=== PATIENT | male | born 1955 | race Caucasian/White ===

== ENCOUNTER 2020-04-18 09:52 | Day surgery (SDC) | payer OTHER, SELFPAY ==
[2020-04-11 15:07] VITALS: BMI 27.9
--- NOTE | 2020-04-18 10:06 | P.CONAN_ITS ---
HPI - Anesthesia Eval Consult details Narrative: 64yo patient here for colonoscopy. [facility] Past Medical History Medical History Chronic HFrEF (heart failure with reduced ejection fraction) Essential hypertension Non-ischemic cardiomyopathy On beta robinson at home Peripheral neuropathy PVC (premature ventricular contraction) Type II diabetes mellitus Family History Family history of problems with anesthesia: No Surgical History Surgical History Hx of cardiac catheterization Hx of colonoscopy History of Problems with Anesthesia: No Social History Social History Are you a primary certified social workers in health care to a significant other at home: No Do you presently have visiting nurse or other home services: No Smoking Status: Never smoker Second Hand Smoke Exposure: No Use of substances other than those prescribed or required for medical reasons: No Have you been hit, kicked, punched, or otherwise hurt by someone within the past year? If so, by whom?: No Advance Directives: No Advance Directives Information Provided: No Advance Directives on File: No Recently lost weight without trying: No Meds Allergies Allergy/AdvReac Type Severity Reaction Status Date / Time No Known Allergies Allergy Unverified 04/11/20 15:00 Home Medications Medication Instructions Recorded Confirmed Type furosemide 20 tab PO DAILY 04/11/20 04/11/20 History insulin glargine [Lantus Solostar 30 unit SUBCUT BEDTIME 04/11/20 04/11/20 Hist ory U-100 Insulin] lisinopril 1 tab PO DAILY 04/11/20 04/11/20 History Exam Exam Date and Time: April 18, 2020 1006 Height,Weight and Vital Signs: Height 5 ft 10 in Weight 88.451 kg Pertinent Lab Results Pertinent Lab Results: Echo 07/27/19: Moderate to severe decrease LV Systolic function. EF 30-35%. Global hypokinesiswithbregional inferior/ inferolateral wall abnormalities. Grade1(mild) diastolic dysfunction. LA moderately dilated. Mild dilatation ascending aorta 4cm. Echo11/18/28: Mildly reduced LV systolic function. EF 45-50%. Impaired relaxation. EMG Nerve conduction studies 10/13/19: secondary LE weakness and fall: Mild proximal myopathic changes, distal chronic denervative changes of neuropathy bilaterally in lower extremities. Holter 08/03/19: Basic rhythm NSR. BBB. Frequent PVCs, occ PACs. MRI Lumbar spine: Multilevel DDD, canal stenosis, disc herniation. Airway Mallampati Class: II TM Dist: >3cm Neck ROM: Full Loose/Missing/Broken Teeth: Yes (Extractions) Heart: RRR Lungs: CTAB Assessment and Plan Assessment Anesthesia Assessment: Anesthesia Plan Discussed and Chart Reviewed Final Anesthetic Review NPO: Yes ASA Class: III Final Preanesthetic Review: No Changes in Pt Med Stat, Meds/Allgs Chart Reviewed, Consent Obtained/Reviewed and Anes Risks/Benef Reviewed Patient Risk: Intermediate Procedure Risk: Low Anesthetic Plan Anesthetic Plan: MAC: Disposition: Standard PACU
[2020-04-18 10:21] LABS: Glucose, Whole Blood 141 mg/dL (60-115)
[2020-04-18 10:29] VITALS: BP 178/82; PULSE 63; RESP 18; TEMP 36.1; O2SAT 100
[2020-04-18] MEDS: Lactated Ringers 1,000 ML 100 ML IVCONT (10:30)
--- NOTE | 2020-04-18 11:15 | MHC.SHP ---
Pre-Procedural Eval Section B Chief Complaint: Screening Details of Present Illness: Hx of Tubular adenoma Relevant Family History (Specify if Yes): No Relevant Social History: None Present Medications: see Short Stay Collaborative assessment Medical History: Significant History (Hypertension, Diabetes) History of Previous Operations: Relevant previous surgery/procedure and date(s) (Last colo--2008--TA) Allergies: Allergies Allergy/AdvReac Type Severity Reaction Status Date / Time No Known Allergies Allergy Unverified 04/11/20 15:00 Review of Systems Sugical H&P ROS: Negative: Constitution, Respiratory and Gastrointestinal and Yes, Specify: Cardiovascular (cath neg) and Endocrine (Diabetic for 5 years) Exam Surgical H&P Exam: Normal: HEENT, Normal: Heart, Normal: Lungs, Normal: Extremities and Normal: Abdomen Plan Diagnosis/Plan: Unchanged Patient has been examined and remains a candidate for the planned procedureYes
--- NOTE | 2020-04-18 11:18 | PM.PROC ---
Brief Operative Note Date of procedure: 04/18/20 Pre-op diagnosis: Hx of Tubular adenoma--colon cancer screening Anesthesia: MAC (CRESENCIO Enrique) Surgeon: Eun Sanders Estimated blood loss (mL): 5 Pathology: other (Hepatic flexure, ascending colon) Condition: stable Disposition: PACU
[2020-04-18 11:46] VITALS: BP 118/61; PULSE 56; RESP 12; TEMP 36.1; O2SAT 100
--- NOTE | 2020-04-18 11:47 | PM.PROC ---
Brief Operative Note Date of procedure: 04/18/20 Pre-op diagnosis: COLON CANCER SCREENING--HX TA Post-op diagnosis: other (POLYPS X 2) Procedure: COLO W/ EXC POLYPECTOMY X 2 CBXF Anesthesia: MAC (CRESENCIO WEST) Surgeon: Eun Sanders Estimated blood loss (mL): 5 Pathology: other (HEPATIC FLEXURE, ASCENDING COLON) Condition: stable Disposition: PACU
[2020-04-18 12:02] VITALS: BP 177/95; PULSE 60; RESP 13; TEMP 36.1; O2SAT 100
--- NOTE | 2020-04-18 12:41 | OP_ITS ---
SURGEON: Eun Sanders MD PREOPERATIVE DIAGNOSIS: History of tubular adenoma in 2008. This is his second colonoscopy. POSTOPERATIVE DIAGNOSIS: Colonic Polyps. ESTIMATED BLOOD LOSS: Less than 5 cc. COMPLICATIONS: No complications. ANESTHESIA: Monitored. ASSISTANTS: No personal injury legal assistant. SPECIMENS: Removed, hepatic flexure and ascending colon. INNERSOLE FITTER: Dr. Sanders. PROCEDURES PERFORMED: Colonoscopy with excisional polypectomy x2 with use of the cold biopsy forceps. CONDITION: Postprocedure, stable. FINDINGS: Digital rectal exam, prostate was slightly enlarged, right lobe greater than left. Video colonoscope was introduced without difficulty. It was navigated into the rectosigmoid. Scope was advanced easily through sigmoid, descending, transverse colon. At the hepatic flexure, diminutive polyp was identified and removed excisionally with cold biopsy forceps. There was sticky mucoid residue adherent to the mcintyre of the ascending colon. This area was flushed and suctioned. We were able to facilitate movement into the cecal cap. Appendiceal orifice was seen. Ileocecal valve was well seen. The second polyp seen just above the area where we entered the cecum. This was again removed excisionally with the cold biopsy foreps. Slow rotational views on withdrawal of scope, no additional lesions were seen. Anorectal verge was clear. CURRENT RECOMMENDATIONS: Repeat asymptomatic screening in this patient going to be 5 years. ANESTHESIOLOGISTS: Iva/Nohemi Walton. GRAFT OR IMPLANTS: No grafts or implants. Eun Sanders MD MEN/MODL / [id number] MTD
== END 2020-04-18 13:52 | disposition home or self-care (01) ==
PROVIDERS: PCP Nurse Practitioner Family; Visit Provider Internal Medicine Gastroenterology
PROC: 0DJD8ZZ Inspection of Lower Intestinal Tract, Via Natural or Artificial Opening Endoscopic (ICD-10-PCS; CPT 45378; principal; 2020-04-18 11:10)
DX: Z12.11 Encounter for screening for malignant neoplasm of colon (principal); Z86.010 Personal history of colon polyps; D12.3 Benign neoplasm of transverse colon; K63.5 Polyp of colon; N40.0 Benign prostatic hyperplasia without lower urinary tract symptoms; I11.0 Hypertensive heart disease with heart failure; I50.22 Chronic systolic (congestive) heart failure; I42.8 Other cardiomyopathies; G62.9 Polyneuropathy, unspecified; E11.9 Type 2 diabetes mellitus without complications; Z79.4 Long term (current) use of insulin; Z79.899 Other long term (current) drug therapy
CPT/HCPCS: 45380; 82947; 88305

== ENCOUNTER → 2020-05-08 14:43 | Outpatient (REF) | payer OTHER, SELFPAY ==
--- NOTE | 2020-05-08 15:00 | CA_ITS ---
Transthoracic Echocardiogram Patient (Last, First, Middle): Briana Borrero A Gender: Male Date of : 1955 Age: 65 Procedure Date: 05/08/2020 Procedure Type: Transthoracic Echocardiogram Location: OP Height: 177.8 cm Weight: 90.72 kg BSA: 2.09 m2 Heart Rate: bpm BP: 128 / 80 mmHg Poultry Pinner: Referring MD: Gerry Lobo MD Symptoms: I50.22 CHRONIC SYSTOLIC CHF,I42.8 OTHER CARDIOMYOPATHIES Study Quality: Good ECG Rhythm: Sinus Conclusions: - The left ventricular systolic function is moderately decreased. The visually estimated ejection fraction is between 30-35%. Findings Procedure Information Contrast agent, definity, is being given per protocol without apparent complications. Left Ventricle Normal left ventricular cavity size. There is mildly increased left ventricular wall thickness. The left ventricular systolic function is moderately decreased. The visually estimated ejection fraction is between 30 35%. There is moderate global hypokinesis. Prior Study Comparison Changes noted compared to prior study dated: 11/19/2019. LVEF further diminished. Measurements 2D Linear Measurements IVSd: 1.20 0.6-0.9/0.6-1.0 cm LVIDd: 5.16 3.9-5.3/4.2-5.9 cm LVIDd Index: 2.47 2.4-3.2/2.2-3.1 cm/m2 LVIDs: 4.30 2.0-3.6 cm LVPWd: 1.21 0.7-1.1 cm LV Mass: 308.27 67-162/88-224 g LV Mass Index: 147.50 43-95/49-115 g/m2 2D Systolic Function EF 4C: 30.30 >55% EF 2C: 28.40 >55% EF BiP: 31.50 >55% Updated in Other Vendor System with Status of Final Weston Anguiano MD electronically signed on 05/09/2020 10:43:39 AM with status of Final
== END ==
LOC: HO.CARD 14:43
PROVIDERS: PCP Nurse Practitioner Family; Visit Provider Internal Medicine Cardiovascular Disease
DX: I50.22 Chronic systolic (congestive) heart failure (principal); I42.8 Other cardiomyopathies
CPT/HCPCS: 93308; Q9957

== ENCOUNTER → 2020-05-15 08:06 | Outpatient (BNVA) | payer OTHER, SELFPAY | PROVIDERS: PCP Nurse Practitioner Family; Referring Provider Nurse Practitioner Family; Visit Provider Internal Medicine Gastroenterology | DX: Z13.89 Encounter for screening for other disorder (principal) | CPT/HCPCS: Q3014 ==

== ENCOUNTER → 2020-05-16 14:41 | Outpatient (BNVA) | payer OTHER, SELFPAY | PROVIDERS: PCP Nurse Practitioner Family; Visit Provider Internal Medicine Cardiovascular Disease | DX: R06.02 Shortness of breath (principal); I42.8 Other cardiomyopathies; I50.20 Unspecified systolic (congestive) heart failure; Z79.4 Long term (current) use of insulin; Z79.899 Other long term (current) drug therapy | CPT/HCPCS: 93005; 99212 ==

== ENCOUNTER 2020-11-28 09:56 | Outpatient (REF) | payer OTHER, SELFPAY ==
--- NOTE | ~2020-11-28 | US_ITS ---
EXAMINATION: US COMPLETE ABDOMEN WITH LIVER ELASTOGRAPHY CLINICAL INFORMATION: Previous abdominal ultrasound October 2019 COMPARISON: None. TECHNIQUE: Real-time imaging of the abdominal viscera. Noninvasive ultrasound liver fibrosis assessment is performed using Mateus ElastPQ point quantification shear wave elastography (pSWE) with a C5-2 MHz transducer. Multiple elastography samples are obtained. FINDINGS: PANCREAS: Normal. ABDOMINAL AORTA: The proximal, middle, and distal aortic segments are normal in caliber. INFERIOR VENA CAVA: Visualized portions are normal. LIVER: Normal. The liver demonstrates normal size, contour and echogenicity. No focal lesion or intrahepatic biliary duct dilatation. The right lobe measures 17 cm in length. The left lobe measures 9 cm in length. Portal flow is normal/hepatopedal Shear wave liver elastography median stiffness is 1.4 m/s (reference: normal median stiffness is 1.3 m/s or less). IQR/median stiffness to assess sampling precision is 0.06 (reference: good quality data set is IQR/median stiffness of 0.15 or less). GALLBLADDER: Normal. The gallbladder is physiologically distended without evidence of stones, sludge, polyps, wall thickening or pericholecystic fluid. COMMON BILE DUCT: Normal in caliber measuring 0.3 cm in diameter. RIGHT KIDNEY: Normal. No hydronephrosis. No renal calculi or focal parenchymal lesions. The kidney measures 13 cm in maximum dimension. LEFT KIDNEY: There is a 1.9 x 1.8 x 2.1 cm cyst in the lower pole. No hydronephrosis. No renal calculi. The kidney measures 12.5 cm in maximum dimension. SPLEEN: Normal. The spleen measures 12 cm in maximum dimension. FREE FLUID: None. US/US abdomen comp w elastography IMPRESSION: 1. Impression: Normal-appearing liver. Left renal cyst. 2. Liver elastography: Adequate liver sampling. In the absence of other known clinical signs, rules out compensated advanced chronic liver disease. REFERENCE: Society of Radiologists in Ultrasound Liver Stiffness Thresholds (2020): LIVER STIFFNESS THRESHOLDS: *Liver Stiffness equal or less than 1.3 m/s: High probability of being normal. *Liver Stiffness less than 1.7 m/s: In the absence of other known clinical signs, rules out compensated advanced chronic liver disease. *Liver Stiffness 1.7-2.1 m/s: Suggestive of compensated advanced chronic liver disease but need further test for confirmation. *Liver Stiffness over 2.1 m/s: Rules in compensated advanced chronic liver disease. *Liver Stiffness over 2.4 m/s: Suggestive of clinically significant portal hypertension. QUALITY OF DATA SET: *IQR/Median value equal or less than 0.15 implies a quality data set. *IQR/Median value over 0.15 implies a poor quality data set. SIGNIFICANT CHANGE FROM PRIOR EXAM: Significant change if liver stiffness measurement is 10% or greater from prior exam. OTHER CONSIDERATIONS: The stage of liver fibrosis may be overestimated in the setting of acute hepatitis, liver inflammation, elevated liver function tests, hepatic vascular congestion, obstructive cholestasis, non-fasting state, and infiltrative diseases such as amyloidosis and lymphoma. In some patients with NAFLD, the liver stiffness thresholds for compensated advanced chronic liver disease may be lower. In causes other than viral hepatitis and NAFLD, liver stiffness thresholds are not well established.
== END 2020-11-28 09:57 | disposition home or self-care (01) ==
LOC: HO.US 09:56
PROVIDERS: PCP Nurse Practitioner Family; Visit Provider Internal Medicine Gastroenterology
DX: K76.0 Fatty (change of) liver, not elsewhere classified (principal); E11.9 Type 2 diabetes mellitus without complications
CPT/HCPCS: 76705; 76981

== ENCOUNTER → 2020-12-06 13:17 | Outpatient (BNVA) | payer OTHER, SELFPAY | PROVIDERS: PCP Nurse Practitioner Family; Visit Provider Physician Assistant ==

== ENCOUNTER → 2020-12-25 14:32 | Outpatient (BNVA) | payer OTHER, SELFPAY | PROVIDERS: PCP Nurse Practitioner Family; Visit Provider Internal Medicine Cardiovascular Disease ==

== ENCOUNTER → 2020-12-26 13:39 | Outpatient (REF) | payer OTHER, SELFPAY ==
--- NOTE | 2020-12-26 13:44 | CA_ITS ---
Transthoracic Echocardiogram Patient (Last, First, Middle): Briana Borrero A Gender: Male Date of : 1955 Age: 65 Procedure Date: 12/26/2020 Procedure Type: Transthoracic Echocardiogram Location: OP Height: 177.8 cm Weight: 95.26 kg BSA: 2.13 m2 Heart Rate: bpm BP: 140 / 75 mmHg Glass Breaker: MABLE Referring MD: Gerry Lobo MD Symptoms: I42.9 - Cardiomyopathy, unspecified Study Quality: Good ECG Rhythm: Sinus Conclusions: - Visually estimated LVEF about 40%. - LV GLS -12.5% (diminished). Findings Left Ventricle Normal left ventricular cavity size. There is normal left ventricular wall thickness. The left ventricular systolic function is moderately decreased. Visually estimated LVEF about 40%. LV GLS -12.5% (diminished). Right Ventricle Normal right ventricular cavity size and systolic function. TAPSE 2.4cm. Prior Study Comparison Changes noted compared to prior study dated: 05/08/2020. LVEF slightly higher. Measurements 2D Linear Measurements LVIDd: 5.05 3.9-5.3/4.2-5.9 cm LVIDd Index: 2.37 2.4-3.2/2.2-3.1 cm/m2 LVIDs: 3.59 2.0-3.6 cm 2D Systolic Function EF 4C: 51.20 >55% EF 2C: 32.50 >55% EF BiP: 43.20 >55% Mitral Valve MV Pk E: 0.99 MV PK A: 0.86 MV Decel Time: 139.00 E/A: 1.10 E'Lateral: 7.45 E'Medial: 4.35 E/E' Med: 22.70 E/E' Lat: 13.30 PHT: 41.00 MVA PHT: 5.37 Decel [place]: 7.20 Diastolic Function MV Pk E: 0.99 MV Pk A: 0.86 E/A: 1.10 E'Medial: 4.35 E/E' Med: 22.70 E' Laterial: 7.45 E/E' Lat: 13.30 Right Ventricle TAPSE (mm): 2.44 Updated in Other Vendor System with Status of Final Weston Anguiano MD electronically signed on 12/28/2020 1:12:00 PM with status of Final
== END ==
LOC: HO.CARD 13:39
PROVIDERS: Visit Provider Internal Medicine Cardiovascular Disease
DX: I42.8 Other cardiomyopathies (principal); I50.20 Unspecified systolic (congestive) heart failure
CPT/HCPCS: 93308; 93356

== ENCOUNTER → 2021-10-31 14:41 | Outpatient (BNVA) | payer OTHER, SELFPAY | PROVIDERS: PCP Nurse Practitioner Family; Referring Provider Nurse Practitioner Family; Visit Provider Nurse Practitioner Family | DX: I42.8 Other cardiomyopathies (principal); I11.0 Hypertensive heart disease with heart failure; I50.20 Unspecified systolic (congestive) heart failure; E11.9 Type 2 diabetes mellitus without complications | CPT/HCPCS: 93005; 99212 ==

== ENCOUNTER 2021-12-04 13:59 | Outpatient (REF) | payer OTHER, SELFPAY ==
[2021-12-04 17:18] LABS: Alanine Aminotransferase 18 U/L (0-40); Albumin Level 4.2 g/dL (3.5-5.0); Alkaline Phosphatase 75 U/L (39-117); Aspartate Amino Transferase 16 U/L (5-37); Bilirubin Direct 0.4 mg/dL (0.0-0.5); Cholesterol 184 mg/dL; HDL Cholesterol 51 mg/dL; LDL Cholesterol Calculated 111 mg/dl; Total Protein 7.1 g/dL (6.5-8.0); Triglycerides 113 mg/dL
[2021-12-04 17:39] LABS: Estimated Average Glucose 298 mg/dL
== END 2021-12-04 14:00 | disposition home or self-care (01) ==
LOC: HO.HMGCLDS 13:59
PROVIDERS: PCP Nurse Practitioner Family; Visit Provider Physician Assistant
DX: R10.11 Right upper quadrant pain (principal); K76.0 Fatty (change of) liver, not elsewhere classified
CPT/HCPCS: 36415; 80061; 80076; 83036

== ENCOUNTER → 2022-04-22 15:00 | Outpatient (REF) | payer OTHER, SELFPAY ==
--- NOTE | 2022-04-22 15:07 | CA_ITS ---
Transthoracic Echocardiogram Patient (Last, First, Middle): Briana Borrero A Gender: Male Date of : 1955 Age: 66 Procedure Date: 04/22/2022 Procedure Type: Transthoracic Echocardiogram Location: OP Height: 177.8 cm Weight: 97.52 kg BSA: 2.15 m2 Heart Rate: 70 bpm BP: 140 / 72 mmHg Roast Master: SB Referring MD: Daphne Rodriguez EDUCATION NURSEJagdeep Symptoms: I42.8 - Other cardiomyopathies Study Quality: Fair ECG Rhythm: Sinus Conclusions: - The left ventricular systolic function is mild to moderately decreased. The calculated ejection fraction is 41% by biplane method. - No obvious valvular pathology seen on this study. Findings Left Ventricle Normal left ventricular cavity size. The left ventricular systolic function is mild to moderately decreased. The calculated ejection fraction is 41% by biplane method. There is mild global hypokinesis. E/E prime ratio is >15, consistent with elevated filling pressures. Evidence suggests grade I (mild) diastolic dysfunction. There is mild septal asymmetric hypertrophy. LV peak GLS -13.2%. Right Ventricle Normal right ventricular cavity size and systolic function. Atria Both atria are normal in size. Aortic Valve There is a normal trileaflet aortic valve. There is no aortic valve stenosis. There is no aortic valve regurgitation. Mitral Valve There is mild mitral annular calcification. There is no mitral valve regurgitation. There is no mitral valve stenosis. Pulmonic Valve The pulmonic valve is likely normal. Tricuspid Valve Normal tricuspid valve structure. There is no tricuspid valve regurgitation. Tricuspid regurgitation envelope is inadequate for calculation of right ventricular systolic pressure. Great Vessels The asc aorta is normal in size. Venous The inferior vena cava is normal in size and collapses greater than 50% with inspiration. Pericardium/Pleural There is no evidence of pericardial effusion. Prior Study Comparison No significant change compared to prior study dated: 12/26/2020. Recommendations, Care & Conclusions No obvious valvular pathology seen on this study. Measurements 2D Linear Measurements IVSd: 1.12 0.6-0.9/0.6-1.0 cm LVIDd: 5.12 3.9-5.3/4.2-5.9 cm LVIDd Index: 2.38 2.4-3.2/2.2-3.1 cm/m2 LVIDs: 3.99 2.0-3.6 cm LVPWd: 0.83 0.7-1.1 cm LA Diam: 4.30 2.7-3.8/3.0-4.0 cm LAIDs Index: 2.00 1.5-2.3 cm/m2 LV Mass: 227.94 67-162/88-224 g LV Mass Index: 106.02 43-95/49-115 g/m2 LVOT Diam: 2.60 3.0+(-)1.3 cm 2D Systolic Function EF 4C: 42.60 >55% EF 2C: 39.10 >55% EF BiP: 40.70 >55% Mitral Valve MV Pk E: 0.93 MV PK A: 1.08 MV Decel Time: 200.00 E/A: 0.90 E'Lateral: 7.18 E'Medial: 4.35 E/E' Med: 21.30 E/E' Lat: 12.90 PHT: 59.00 MVA PHT: 3.73 Decel [place]: 4.63 Aortic Valve AoV Pk Emery: 1.55 AoV Mn Emery: 1.13 AoV VTI: 0.38 AoV Pk Grad: 10.00 Aov Mn Grad: 6.00 WENDY Cont.VTI: 2.88 LVOT LVOT Pk Emery: 0.91 LVOT Mn Emery: 0.65 LVOT VTI: 0.21 LVOT Pk Grad: 3.00 LVOT Mn Grad: 2.00 LVOT Diam: 2.60 LVOT Area: 5.31 Diastolic Function MV Pk E: 0.93 MV Pk A: 1.08 E/A: 0.90 E'Medial: 4.35 E/E' Med: 21.30 E' Laterial: 7.18 E/E' Lat: 12.90 Right Ventricle TAPSE (mm): 20.80 TVS' Emery: 15.70 Tricuspid Valve RA Press: 3.00 Great Vessels Aorta Sinus of Valsalva: 3.80 2.0-3.5 cm Ao Asc: 3.90 2.1-3.4 cm Ao Arch: 3.50 Pulmonary Veins Pulm Vein S/D 1.00 Pulmonary Valve PV Pk Emery: 0.97 Peak PV Grad: 4.00 Updated in Other Vendor System with Status of Final Weston Anguiano MD electronically signed on 04/24/2022 12:19:47 PM with status of Final
== END ==
LOC: HO.CARD 15:00
PROVIDERS: Visit Provider Nurse Practitioner Family
DX: I42.8 Other cardiomyopathies (principal)
CPT/HCPCS: 93306; 93356

== ENCOUNTER → 2022-05-09 14:51 | Outpatient (BNVA) | payer OTHER, SELFPAY | PROVIDERS: PCP Nurse Practitioner Family; Visit Provider Internal Medicine Cardiovascular Disease | DX: I50.22 Chronic systolic (congestive) heart failure (principal); I10 Essential (primary) hypertension; I42.8 Other cardiomyopathies; E11.42 Type 2 diabetes mellitus with diabetic polyneuropathy; Z98.890 Other specified postprocedural states | CPT/HCPCS: 99212 ==

== ENCOUNTER → 2022-11-19 15:07 | Outpatient (BNVA) | payer MEDICARE, OTHER, SELFPAY | PROVIDERS: PCP Nurse Practitioner Family; Referring Provider Nurse Practitioner Family; Visit Provider Internal Medicine Cardiovascular Disease | DX: I50.20 Unspecified systolic (congestive) heart failure (principal); I42.8 Other cardiomyopathies; Z79.899 Other long term (current) drug therapy | CPT/HCPCS: 93005; 99212 ==

== ENCOUNTER 2022-11-22 13:56 | Outpatient (REF) | payer MEDICARE, OTHER, SELFPAY ==
[2022-11-22 19:12] LABS: Blood Urea Nitrogen 24 mg/dL (9-16); Calcium 9.5 mg/dL (8.4-10.2); Estimated Glomerular Filt Rate > 60
[2022-11-22 19:20] LABS: B Type Natriuretic Peptide 455 pg/mL (<100)
[2022-11-22 21:01] LABS: Anion Gap 13 (12-20); Carbon Dioxide 25 mmol/L (22-29); Chloride 106 mmol/L (96-108); Glucose Random 397 mg/dL (60-115); Potassium 4.1 mmol/L (3.3-5.1); Sodium 140 mmol/L (135-145)
== END 2022-11-22 13:57 | disposition home or self-care (01) ==
LOC: HO.HMGCLDS 13:56
PROVIDERS: PCP Nurse Practitioner Family; Visit Provider Internal Medicine Cardiovascular Disease
DX: I50.20 Unspecified systolic (congestive) heart failure (principal)
CPT/HCPCS: 36415; 80048; 83880

== ENCOUNTER 2023-03-11 15:47 | Outpatient (AMB) | payer MEDICARE, OTHER, SELFPAY ==
[2023-03-11 16:17] VITALS: BP 142/88; PULSE 67; O2SAT 99; BMI 32.3
--- NOTE | 2023-03-11 16:17 | MHC.PC.OV ---
Vital Signs 03/11/23 16:17 Height 5 ft 10 in Weight 225 lb 4 oz BMI 32.3 BP 142/88 H Blood Pressure Location Lt brachial Position Sitting Pulse 67 Pulse Source Pulse Oximeter Pulse Oximetry (%) 99 Oxygen Delivery Method Room Air Intake Visit Reasons: Annual PE/Re Est. Care Allergies No Known Allergies Allergy (Verified 03/11/23 16:19) Medication List - Last Reconciled 03/11/23 by BERTHA Roger atorvastatin 20 mg PO BEDTIME dulaglutide (Trulicity) 0.75 mg (0.5 mL) subcut QWEEK 30 days furosemide 20 mg PO DAILY insulin glargine (Lantus Solostar U-100 Insulin) 30 units (0.3 mL) subcut BEDTIME metoprolol succinate ER 150 mg (3 x 50 mg) PO DAILY 90 days pen needle, diabetic As directed sacubitril-valsartan 97-103 mg (Entresto) 1 tab PO BID Tobacco use date assessed: 03/11/23 Fall risk assessment: No Falls in past year Last assessed Fall Risk: 03/11/23 Dental Screening Dental Screen Date: 03/11/23 Did you have a dental visit in the last 12 months?: Yes Did you have a dental problem in the last 6 months where you did not have access to dental care?: No Was dental information given to patient?: Patient has dentist HPI Annual PE/Re Est. Care HPI Details Pt is here for a PE. Will order labs. Colon screen is up to date. Due for PSA, will order. Denies dribbling with urination, weak stream, and nocturia. Pt is a diabetic, on an ARB. A1C in office today is 9.0. Due for microalbumin, will order. Denies polyuria, polydipsia, and neuropathy. Pt denies any signs and symptoms of hypoglycemia and does know how to correct it. Pt was recently off lantus due to being out of needles. He was sent needles and has been back on lantus for 1 month. Will start trulicity 0.75mg. Will also start atorvastatin 20mg. Pt follows up with cardiology regularly. [facility] Medical History Lumbar disc herniation Ulnar neuropathy at elbow of left upper extremity Carpal tunnel syndrome, right Tubular adenoma of colon Hepatic steatosis On beta robinson at home Type II diabetes mellitus Chronic HFrEF (heart failure with reduced ejection fraction) Essential hypertension PVC (premature ventricular contraction) Non-ischemic cardiomyopathy Peripheral neuropathy Surgical History Hx of cardiac catheterization Hx of colonoscopy Family History Father Diabetes CHF (congestive heart failure) Mother High blood pressure Bladder cancer Social History Housing: House Are you a primary healthcare consultant to a significant other at home: No Do you presently have visiting nurse or other home services: No Alcohol intake: current Alcohol intake frequency: holidays/special occasions only Patient Tobacco Use Status: Never used Tobacco e-Cigarette/Vaping Use: Never Used Second Hand Smoke Exposure: No Current occupational status: employed 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 1. Little interest or pleasure in doing things: not at all 2. Feeling down, depressed, or hopeless: not at all 3. Trouble falling or staying asleep, or sleeping too much: not at all 4. Feeling tired or having little energy: not at all 5. Poor appetite or overeating: not at all 6. Feeling bad about yourself - or that you are a failure or have let yourself or your family down: not at all 7. Trouble concentrating on things, such as reading the newspaper or watching television: not at all 8. Moving or speaking so slowly that other people could have noticed. Or the opposite - being so fidgety or restless that you have been moving around a lot more than usual: not at all 9. Thoughts that you would be better off or of hurting yourself in some way: not at all Total score: 0 Depression Screening Interpretation: Negative Depression Screening Done: Yes 19787 - PHQ-9 Billing: Yes Source: Developed by Drs. Mateo Valverde, Alice Calhoun, Guru Messer and colleagues, with an educational teo from [employer]. Thrive Questionnaire Date Thrive assessed: 03/11/23 I am a: Patient What is your living situation today?: I have a steady place to live Within the past 12 months, did the food you bought not last and you didn't have the money to get more?: Never true Within the past 12 months, did you worry whether your food would run out before you got money to buy more?: Never true Do you have trouble paying for medicines?: No Do you have trouble getting transportation to medical appointments?: No Do you have trouble paying your heating and electricity bill?: No Do you have trouble taking care of your child, family member or friend?: No Do you have trouble with day-to-day activities such as bathing, preparing meals, shopping, managing finances, etc.?: No Are you currently unemployed and looking for a job?: No Are you interested in more education?: No Currently or been in a relationship where the following occur: no concerns reported AUDIT C Alcohol Use Questionnaire (AUDIT-C) 1. How often do you have a drink containing alcohol?: 2-4 times a month 2. How many drinks containing alcohol do you have on a typical day when you are drinking?: 1 or 2 3. How often do you have six or more drinks on one occasion?: Never Total Score: 2 MANUEL-7 AMB Questionnaire MANUEL-7 Date MANUEL - 7 assessed: 03/11/23 Feeling nervous, anxious, or on edge: 0 = Not at all Not being able to stop or control worryin = Not at all Worrying too much about different things: 0 = Not at all Trouble relaxin = Not at all Being so restless that it is hard to sit still: 0 = Not at all Becoming easily annoyed or irritable: 0 = Not at all Feeling afraid as if something awful might happen: 0 = Not at all Total MANUEL-7 score (0-4 normal; 5-9 mild; 10-14 moderate; 15-21 severe): 0 Source: Developed by Drs. Mateo Valverde, Alice Calhoun, Guru Messer and colleagues, with an educational teo from [employer]. Review of Systems Const Denies chills and Denies fever(s) Eyes Denies blurry vision ENT Denies vertigo, Denies dizziness and Denies sore throat Card Denies chest pain at rest, Denies chest pain with activity, Denies diaphoresis, Denies dyspnea and Denies dyspnea on exertion Resp Denies cough, Denies dyspnea, Denies dyspnea on exertion and Denies wheezing GI Denies abdominal pain, Denies melena, Denies hematochezia, Denies constipation, Denies diarrhea and Denies loose stools Denies hematuria Musc Denies numbness and Denies tingling Skin/Breast Denies lesions Neuro Denies vertigo, Denies dizziness, Denies numbness and Denies tingling Psych Denies anxiety, Denies depression, Denies homicidal ideation, Denies suicidal ideation and Denies other (substance abuse) Aller/Immun Denies wheezing Physical exam (Primary Care) Vital Signs: Last Vital Signs Pulse 67 03/11/23 16:17 BP 142/88 H 03/11/23 16:17 Pulse Ox 99 03/11/23 16:17 Oxygen Delivery Method Room Air 03/11/23 16:17 BMI result Body Mass Index 32.3 Tobacco/Smoking Status: Tobacco use Status Tobacco use date assessed 03/11/23 03/11/23 16:26 Patient Tobacco Use Status Never used Tobacco 03/11/23 16:26 e-Cigarette/Vaping Use Never Used 03/11/23 16:26 PHQ-9: PHQ-9 Score PHQ-9: Total score 0 03/11/23 16:33 Depression Screening Interpretation: Negative Thrive Assessment: Date of Thrive Assessment Date Thrive assessed 03/11/23 03/11/23 16:33 Currently or been in a relationship where the following occur: no concerns reported Const General: cooperative Nutritional Appearance: obese Orientation/consciousness: patient oriented x3 HENMT Other: cerumen noted to left ear, after ear lavage TM easily seen Head: Yes normal to inspection, Yes normocephalic and Yes atraumatic Ears: TM normal on the right Eyes General: appearance normal, both eyes and all related structures Alignment and Position: alignment normal and position normal Neck Neck: Yes normal visual inspection and Yes no lymphadenopathy Thyroid: Thyroid normal Resp Effort & Inspection: normal respiratory effort Auscultation: clear to auscultation bilaterally Cardio Rate: regular rate Rhythm: regular rhythm Heart sounds: S1 normal heart sound present, S2 normal heart sound present and no murmurs GI Palpation (GI): Soft to palpation and nontender Auscultation: normal bowel sounds Male General Exam: Yes normal external exam Penis: normal penis Scrotum: scrotum normal, testes descended bilaterally and no inguinal hernias Testes: no testicular mass Skin Rashes: no rashes Neuro General: patient oriented x3, moves all extremities, no focal motor deficits and deep tendon reflexes 2+ bilaterally Romberg Test: Negative Extrem Other: +1 pitting to BLE Psych Appearance: grossly normal Mental Status: mental status grossly normal Speech and movement: Normal speech and movement present Affect: normal affect Attitude: cooperative Thought process: Normal thought process present Thought content: Normal thought content present Insight: Good insight present (Psych) Judgement: Good judgement present (Psych) Office Procedures Cerumen Removal From which ear canal was the cerumen removed: left Removal: irrigation Notes: patient tolerated procedure well [id number] Irrigation/Lavage Results AMB Hemoglobin A1c AMB Hemoglobin A1c 9.0 % Last Edit by Joan Harden CMA on 03/11/23 16:57 Immunizations pneumoc 20-angeles conj-dip cr(PF) 0.5 mL IM syringe Performing Provider: BERTHA Roger Performing Location: [facility] Administered by: Joan Harden CMA on 03/11/23 17:16 Dose Route Admin Location Dispensed Lot Number Expiration Date NDC Offset Plate Maker 0.5 mL IM Right Deltoid 0.5 mL [id number] 04/01/24 5704-6192-29 [employer] VIS Given Date VIS Provided VIS Publication Date 03/11/23 Single Vaccine 21 Eligibility Eligibility Date Funding Source Not [facility] Eligible 03/11/23 Private Assessment and Plan Assessment & Plan (1) Physical exam: Code(s): Z00.00 - Encounter for general adult medical examination without abnormal findings Plan: Labs ordered (2) Screening for prostate cancer: Code(s): Z12.5 - Encounter for screening for malignant neoplasm of prostate Plan: PSA ordered (3) Cerumen impaction: Code(s): H61.20 - Impacted cerumen, unspecified ear (4) Type II diabetes mellitus: Code(s): E11.9 - Type 2 diabetes mellitus without complications Plan: Labs ordered, starting trulicity and atorvastatin Plan The patient agreed to the use of a medical superintendent for this encounter. Scribed for Timothy Trujillo, CONVEYOR TECHNICIAN-BC by Cristina Deleon medical superintendent, on 03/11/2023 at 16:45 EST Orders: Orders Comprehensive [place]. Panel Fast Today Z00.00 - Encounter for general adult medical examination without abnormal findings TSH reflex Free T4 Today Z00.00 - Encounter for general adult medical examination without abnormal findings UA CC w/rflx Micro + Cult Today Z00.00 - Encounter for general adult medical examination without abnormal findings Microalbumin, Random (w Creat) Today E11.9 - Type 2 diabetes mellitus without complications Complete Blood Count Auto Diff Today Z00.00 - Encounter for general adult medical examination without abnormal findings Lipid Panel Today Z00.00 - Encounter for general adult medical examination without abnormal findings Prostate Specific Antigen Scr Today Z00.00 - Encounter for general adult medical examination without abnormal findings, Z12.5 - Encounter for screening for malignant neoplasm of prostate AMB Hemoglobin A1c Today E11.9 - Type 2 diabetes mellitus without complications Pneumococcal 20 Immunization Today Z23 - Encounter for immunization Medications: New dulaglutide (Trulicity) 0.75 mg (0.5 mL) subcut QWEEK 30 days 2.5 mL 0RF atorvastatin 20 mg PO BEDTIME 90 tabs 0RF Coding Level of Care Code New Pt Prev Care >65yr (14350) Diagnoses Physical exam Z00.00 Screening for prostate cancer Z12.5 Cerumen impaction H61.20 Type II diabetes mellitus E11.9 CPT Codes Office Procedure - CPT: 58092-Btv Irrigation/Lavage ([id number])
== END 2023-03-11 17:18 | disposition home or self-care (01) ==
PROVIDERS: Visit Provider Nurse Practitioner Family
DX: Z00.00 Encounter for general adult medical examination without abnormal findings (principal); Z12.5 Encounter for screening for malignant neoplasm of prostate; H61.22 Impacted cerumen, left ear; E11.9 Type 2 diabetes mellitus without complications; Z23 Encounter for immunization
CPT/HCPCS: 69209; 83036; 90471; 90677; 99387

== ENCOUNTER → 2023-04-21 14:50 | Outpatient (REF) | payer MEDICARE, OTHER, SELFPAY ==
--- NOTE | 2023-04-21 15:30 | CA_ITS ---
Transthoracic Echocardiogram Patient (Last, First, Middle): Briana Borrero A Gender: Male Date of : 1955 Age: 67 Procedure Date: 04/21/2023 Procedure Type: Transthoracic Echocardiogram Location: OP Height: 175.26 cm Weight: 94.35 kg BSA: 2.10 m2 Heart Rate: bpm BP: 130 / 70 mmHg Manager Philosophy: ALFRED Referring MD: Gerry Lobo MD Symptoms: I50.20 - Unspecified systolic (congestive) heart failure Study Quality: Adequate with contrast Conclusions: - The left ventricular systolic function is mildly decreased. The visually estimated ejection fraction is between 40-45%. - No obvious valvular pathology seen on this study. - There is mild dilatation of the sinuses of Valsalva measuring 4.10 cm and mild dilatation of the ascending aorta measuring 4.00 cm. Findings Procedure Information Contrast agent, definity, is being given per protocol without apparent complications. Left Ventricle Normal left ventricular cavity size. There is mildly increased left ventricular wall thickness. The left ventricular systolic function is mildly decreased. The visually estimated ejection fraction is between 40-45%. There is mild global hypokinesis. Evidence suggests grade I (mild) diastolic dysfunction. Right Ventricle Normal right ventricular cavity size and systolic function. Atria The left atrium is mildly dilated. The right atrium is normal in size. Aortic Valve There is a normal trileaflet aortic valve. There is mild calcification of the aortic valve. There is no aortic valve stenosis. There is no aortic valve regurgitation. Mitral Valve There is mild mitral annular calcification. There is no mitral valve regurgitation. There is no mitral valve stenosis. Pulmonic Valve The pulmonic valve is likely normal. Tricuspid Valve There is trace tricuspid valve regurgitation. There is no evidence of pulmonary hypertension. Great Vessels There is mild dilatation of the sinuses of Valsalva measuring 4.10 cm and mild dilatation of the ascending aorta measuring 4.00 cm. Venous The inferior vena cava is normal in size and collapses greater than 50% with inspiration. Pericardium/Pleural There is no evidence of pericardial effusion. Prior Study Comparison No significant change compared to prior study dated: 04/22/2022. (ascending aorta dimension 4cm in 2020) Recommendations, Care & Conclusions No obvious valvular pathology seen on this study. Measurements 2D Linear Measurements IVSd: 1.17 0.6-0.9/0.6-1.0 cm LVIDd: 4.91 3.9-5.3/4.2-5.9 cm LVIDd Index: 2.34 2.4-3.2/2.2-3.1 cm/m2 LVIDs: 3.96 2.0-3.6 cm LVPWd: 1.08 0.7-1.1 cm LA Diam: 3.80 2.7-3.8/3.0-4.0 cm LAIDs Index: 1.81 1.5-2.3 cm/m2 LV Mass: 258.64 67-162/88-224 g LV Mass Index: 123.16 43-95/49-115 g/m2 LVOT Diam: 2.50 3.0+(-)1.3 cm 2D Systolic Function EF 4C: 39.80 >55% EF 2C: 51.80 >55% EF BiP: 46.60 >55% Mitral Valve MV Pk E: 0.73 MV PK A: 0.95 MV Decel Time: 207.00 E/A: 0.80 E'Lateral: 4.24 E'Medial: 2.94 E/E' Med: 24.80 E/E' Lat: 17.20 PHT: 61.00 MVA PHT: 3.61 Decel [place]: 3.52 Aortic Valve AoV Pk Emery: 1.31 AoV Mn Emery: 0.94 AoV VTI: 0.35 AoV Pk Grad: 7.00 Aov Mn Grad: 4.00 WENDY Cont.VTI: 2.48 LVOT LVOT Pk Emery: 0.70 LVOT Mn Emery: 0.47 LVOT VTI: 0.18 LVOT Pk Grad: 2.00 LVOT Mn Grad: 1.00 LVOT Diam: 2.50 LVOT Area: 4.91 Diastolic Function MV Pk E: 0.73 MV Pk A: 0.95 E/A: 0.80 E'Medial: 2.94 E/E' Med: 24.80 E' Laterial: 4.24 E/E' Lat: 17.20 Right Ventricle TAPSE (mm): 21.90 TVS' Emery: 11.70 Tricuspid Valve TR Pk Emery: 2.04 TR Pk Grad: 17.00 RA Press: 3.00 RVSP: 20.00 Great Vessels Aorta Sinus of Valsalva: 4.10 2.0-3.[address] [place]: 3.13 1.7-3.4 cm Ao Asc: 4.00 2.1-3.4 cm Updated in Other Vendor System with Status of Final Weston Anguiano MD electronically signed on 04/22/2023 1:04:51 PM with status of Final
== END ==
LOC: HO.CARD 14:50
PROVIDERS: PCP Nurse Practitioner Family; Visit Provider Internal Medicine Cardiovascular Disease
DX: I50.20 Unspecified systolic (congestive) heart failure (principal)
CPT/HCPCS: 93306; Q9957

== ENCOUNTER → 2023-04-21 15:30 | Outpatient (BNV) | payer MEDICARE, OTHER, SELFPAY | PROVIDERS: PCP Nurse Practitioner Family; Visit Provider Internal Medicine | DX: I35.8 Other nonrheumatic aortic valve disorders (principal); I50.20 Unspecified systolic (congestive) heart failure | CPT/HCPCS: 93306 ==

== ENCOUNTER 2023-05-22 14:48 | Outpatient (AMB) | payer MEDICARE, OTHER, SELFPAY ==
[2023-05-22 15:11] VITALS: BP 130/74; PULSE 59; BMI 31.6
--- NOTE | 2023-05-22 15:11 | A.OFFVIS_ITS ---
Intake Vital Signs 05/22/23 15:11 Height 5 ft 10 in Weight 220 lb 7.396 oz BMI 31.6 BP 130/74 Blood Pressure Location Lt brachial Position Sitting Pulse 59 Intake Visit Reasons: 6 mth f/up s/p echo Intake Note: 6 month follow-up after echo feeling good Proced Tech Required: No Allergies No Known Allergies Allergy (Verified 03/11/23 16:19) Medication List - Last Reconciled 05/22/23 by Gerry Lobo MD atorvastatin 20 mg PO BEDTIME flash glucose scanning reader ([employer] Janak 2 Wood) Use for continuous monitoring of blood sugars flash glucose sensor ([employer]Style Janak 2 Sensor kit) Use for continuous monitoring of blood sugars furosemide 20 mg PO DAILY insulin glargine (Lantus Solostar U-100 Insulin) 30 units (0.3 mL) subcut BEDTIME metoprolol succinate ER 150 mg (3 x 50 mg) PO DAILY 90 days pen needle, diabetic As directed sacubitril-valsartan 97-103 mg (Entresto) 1 tab PO BID 90 days HPI HPI Comments History of Present Illness Details Briana comes for follow-up. Most recent echocardiogram shows [id number] LV systolic dysfunction which has been stable with LVEF of 40- 45%. He denies any worsening heart failure symptoms. Denies any palpitations. No lightheadedness, syncope. Takes all his medications. No recent labs. PFS Medical History Lumbar disc herniation Ulnar neuropathy at elbow of left upper extremity Carpal tunnel syndrome, right Tubular adenoma of colon Hepatic steatosis On beta robinson at home Type II diabetes mellitus Chronic HFrEF (heart failure with reduced ejection fraction) Essential hypertension PVC (premature ventricular contraction) Non-ischemic cardiomyopathy Peripheral neuropathy Surgical History Hx of cardiac catheterization Hx of colonoscopy Family History Father Diabetes CHF (congestive heart failure) Mother High blood pressure Bladder cancer Social History Housing: House Are you a primary acute care physical therapist to a significant other at home: No Do you presently have visiting nurse or other home services: No Alcohol intake: current Alcohol intake frequency: holidays/special occasions only Patient Tobacco Use Status: Never used Tobacco e-Cigarette/Vaping Use: Never Used Second Hand Smoke Exposure: No Current occupational status: employed 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[employer] Cognitive needs: No Hearing needs: No Vision needs: No Review of Systems Const Denies chills, Denies fatigue, Denies fever(s), Denies frequent falls, Denies weakness, Denies weight gain and Denies weight loss ENT Denies dizziness Card Denies chest pain, Denies leg edema, Denies lightheadedness, Denies palpitations, Denies dyspnea, Denies dyspnea on exertion, Denies orthopnea and Denies other (loss of consciousness) Resp Denies cough, Denies dyspnea and Denies dyspnea on exertion GI Denies hematochezia and Denies change in stool character Musc Denies abnormal gait, Denies muscle weakness, Denies numbness, Denies radiating pain into limb and Denies tingling Neuro Denies abnormal gait, Denies dizziness, Denies frequent falls, Denies numbness, Denies tingling and Denies weakness Endo Denies fatigue and Denies palpitations Physical Exam Vital Signs: Last Vital Signs Pulse 59 05/22/23 15:11 BP 130/74 05/22/23 15:11 BMI result Body Mass Index 31.6 Const General: cooperative, no acute distress, alert, awake and poor hygiene Orientation/consciousness: patient oriented x3 HEENT Head: Yes normocephalic and Yes atraumatic Neck Neck: Yes normal visual inspection and Yes no JVD Resp Effort & Inspection: normal respiratory effort, able to speak in complete sentences and not labored Auscultation: clear to auscultation bilaterally, no crackles, no rales, no rhonchi and no wheezes Cardio Rate: regular rate Rhythm: regular rhythm Heart sounds: S1 normal heart sound present and S2 normal heart sound present Peripheral pulses: Peripheral pulses 2+ throughout GI Inspection: Yes normal to inspection Neuro General: patient oriented x3 Extrem General: Yes normal to inspection and No edema Assessment & Plan Assessment & Plan (1) Heart failure with reduced ejection fraction: Code(s): I50.20 - Unspecified systolic (congestive) heart failure Plan: Heart failure with reduced ejection fraction with [id number] LV systolic dysfunction which has remained stable with stable symptoms, NYHA class 1-2. He has no signs of fluid overload and appears to be clinically euvolemic. Doing well at current point in time. Importance of daily weight monitoring was discussed to guide diuretic therapy. Showed some surprise although we had discussed this in the past additional diuretics as need be. Importance of parviz nue neurohormonal modulation with Entresto and metoprolol was discussed. He understands and agrees. Avoidance of salt loading was discussed. Participate in regular physical activity was discussed also importance of improve nutrition weight reduction as well as better control of diabetes was discussed with him. Will follow up in the clinic in 6 months time, sooner p.r.n.. Thank you for allowing me to partake in his care Coding Level of Care Code Est Pt Level 4 (73976) Diagnoses Heart failure with reduced ejection fraction I50.20
== END 2023-05-22 15:40 | disposition home or self-care (01) ==
PROVIDERS: Visit Provider Internal Medicine Cardiovascular Disease
DX: I50.20 Unspecified systolic (congestive) heart failure (principal)
CPT/HCPCS: 99214

== ENCOUNTER → 2023-05-22 14:48 | Outpatient (BNVA) | payer MEDICARE, OTHER, SELFPAY | PROVIDERS: Visit Provider Internal Medicine Cardiovascular Disease | DX: I50.20 Unspecified systolic (congestive) heart failure (principal) | CPT/HCPCS: 99212 ==

== ENCOUNTER 2023-07-08 14:07 | Outpatient (REF) | payer MEDICARE, SELFPAY ==
[2023-07-08 16:23] LABS: MANUAL DIFF FLAG NO
[2023-07-08 16:28] LABS: Basophils Percent Auto 0.7 % (0-2); Eosinophils Absolute Auto 0.2 X10*3/uL (0.0-0.4); Eosinophils Percent Auto 3.1 % (0-4); Hemoglobin 14.2 g/dl (14.0-18.0); Imm Gran Abs Auto 0.01 X10*3/uL (0.00-0.03); Imm Gran Pct Auto 0.2 % (0.0-0.4); Lymphocytes Absolute Auto 1.3 X10*3/uL (1.2-4.9); Lymphocytes Percent Auto 24.4 % (20-40); Mean Corpuscular Hemoglobin 27.6 pg (27.0-33.0); Mean Corpuscular Volume 83.7 fL (80.0-98.0); Mean Platelet Volume 11.4 fL (9.4-12.4); Monocytes Absolute Auto 0.5 X10*3/uL (0.1-1.2); Monocytes Percent Auto 9.7 % (2-11); Neutrophils Absolute Auto 3.4 x10*3/uL (2.0-8.3); Neutrophils Percent Auto 61.9 % (45-73); Platelet Count 218 X10*3/uL (160-400); Red Blood Count 5.14 X10*6/uL (4.60-5.80); Red Cell Distribution Width 13.8 % (11.0-16.0); White Blood Count 5.4 X10*3/uL (4.8-10.8)
[2023-07-08 16:54] LABS: Alanine Aminotransferase 17 U/L (0-40); Albumin Level 3.6 g/dL (3.5-5.0); Alkaline Phosphatase 58 U/L (39-117); Anion Gap 15 (12-20); Aspartate Amino Transferase 15 U/L (5-37); Bilirubin Total 0.8 mg/dL (0.0-1.0); Blood Urea Nitrogen 36 mg/dL (9-16); Calcium 9.1 mg/dL (8.4-10.2); Carbon Dioxide 22 mmol/L (22-29); Chloride 109 mmol/L (96-108); Cholesterol 175 mg/dL (<200); Estimated Glomerular Filt Rate > 60; Glucose Fasting 118 mg/dL (60-99); HDL Cholesterol 55 mg/dL (>40); LDL Cholesterol Calculated 103 mg/dL (<100); Sodium 142 mmol/L (135-145); Triglycerides 87 mg/dL (<150)
[2023-07-08 17:01] LABS: TSH reflex Free T4 5.26 uIU/mL (0.32-4.0)
[2023-07-08 17:03] LABS: Prostate Specific Antigen Scr 4.58 ng/mL (<0.05-4.0)
[2023-07-08 18:56] LABS: Free T4 (Free Thyroxine) 1.12 ng/dL (0.71-1.85)
== END 2023-07-08 14:08 | disposition home or self-care (01) ==
LOC: HO.HMGCLDS 14:07
PROVIDERS: PCP Nurse Practitioner Family; Visit Provider Nurse Practitioner Family
DX: Z00.00 Encounter for general adult medical examination without abnormal findings (principal); Z12.5 Encounter for screening for malignant neoplasm of prostate
CPT/HCPCS: 36415; 80053; 80061; 84153; 84439; 84443; 85025

== ENCOUNTER 2023-11-12 15:28 | Outpatient (AMB) | payer MEDICARE, SELFPAY ==
[2023-11-12 15:29] VITALS: BP 112/66; PULSE 65; O2SAT 98; BMI 31.0
--- NOTE | 2023-11-12 15:29 | MHC.PC.OV ---
Vital Signs 11/12/23 15:29 Height 5 ft 10 in Weight 216 lb BMI 31.0 BP 112/66 Blood Pressure Location Rt brachial Position Sitting Pulse 65 Pulse Source Pulse Oximeter Pulse Oximetry (%) 98 Oxygen Delivery Method Room Air Intake Visit Reasons: F/U DM Intake Note: Pt is here today for a follow up visit on DM. Allergies No Known Allergies Allergy (Verified 11/12/23 15:34) Medication List - Last Reconciled 11/12/23 by BERTHA Roger atorvastatin 20 mg PO BEDTIME flash glucose scanning reader (SomaStyle Janak 2 [place]) Use for continuous monitoring of blood sugars flash glucose sensor (FreeStyle Janak 2 Sensor kit) Use for continuous monitoring of blood sugars furosemide 20 mg PO DAILY insulin glargine (Lantus Solostar U-100 Insulin) 30 units (0.3 mL) subcut BEDTIME metoprolol succinate ER 150 mg (3 x 50 mg) PO DAILY 90 days pen needle, diabetic As directed sacubitril-valsartan 97-103 mg (Entresto) 1 tab PO BID 90 days semaglutide (Ozempic) 0.25 mg (0.368 mL) subcut QWEEK Tobacco use date assessed: 11/12/23 Fall risk assessment: No Falls in past year Last assessed Fall Risk: 11/12/23 Dental Screening Dental Screen Date: 11/12/23 Did you have a dental visit in the last 12 months?: Yes Did you have a dental problem in the last 6 months where you did not have access to dental care?: No Was dental information given to patient?: Patient has dentist HPI F/U DM HPI Details Pt is a diabetic, on an ARB and a statin. A1C in office today is 7.3. Due for microalbumin, this has been ordered. Denies polyuria, polydipsia, and neuropathy. Pt denies any signs and symptoms of hypoglycemia and does know how to correct it. Will add ozempic 0.25mg. Pt's last PSA was elevated, will repeat. Pt was referred to urology, pt was unable to be reached by phone so letter was sent. Pt reports he gave up on this. Pt's TSH was elevated, will repeat labs. [facility] Medical History Lumbar disc herniation Ulnar neuropathy at elbow of left upper extremity Carpal tunnel syndrome, right Tubular adenoma of colon Hepatic steatosis On beta robinson at home Type II diabetes mellitus Chronic HFrEF (heart failure with reduced ejection fraction) Essential hypertension PVC (premature ventricular contraction) Non-ischemic cardiomyopathy Peripheral neuropathy Surgical History Hx of cardiac catheterization Hx of colonoscopy Family History Father Diabetes CHF (congestive heart failure) Mother High blood pressure Bladder cancer Social History Housing: House Are you a primary caretaker resort to a significant other at home: No Do you presently have visiting nurse or other home services: No Alcohol intake: current Alcohol intake frequency: holidays/special occasions only Patient Tobacco Use Status: Never used Tobacco e-Cigarette/Vaping Use: Never Used Second Hand Smoke Exposure: No service: No Current occupational status: employed 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 27905 - PHQ-9 Billing: Patient declined-do not bill Source: Developed by Drs. Mateo Valverde, Alice Calhoun, Guru Messer and colleagues, with an educational teo from [employer]. Thrive Questionnaire Date Thrive assessed: 11/12/23 I am a: Patient What is your living situation today?: I choose not to answer this question Within the past 12 months, did the food you bought not last and you didn't have the money to get more?: I choose not to answer this question Within the past 12 months, did you worry whether your food would run out before you got money to buy more?: I choose not to answer this question Do you have trouble paying for medicines?: I choose not to answer this question Do you have trouble getting transportation to medical appointments?: I choose not to answer this question Do you have trouble paying your heating and electricity bill?: I choose not to answer this question Do you have trouble taking care of your child, family member or friend?: I choose not to answer this question Do you have trouble with day-to-day activities such as bathing, preparing meals, shopping, managing finances, etc.?: I choose not to answer this question Are you currently unemployed and looking for a job?: I choose not to answer this question Are you interested in more education?: I choose not to answer this question Currently or been in a relationship where the following occur: I choose not to answer this question THRIVE Score: 0 AUDIT C Alcohol Use Questionnaire (AUDIT-C) 1. How often do you have a drink containing alcohol?: Never 3. How often do you have six or more drinks on one occasion?: Never Total Score: 0 MANUEL-7 AMB Questionnaire MANUEL-7 Date MANUEL - 7 assessed: 11/12/23 Source: Developed by Drs. Mateo Valverde, Alice Calhoun, Guru Messer and colleagues, with an educational teo from [employer]. MANUEL-7 Assessment Billing MANUEL-7 Assessment Tool: pt declined-do not bill Review of Systems Const Reports as per HPI Physical exam (Primary Care) Vital Signs: Last Vital Signs Pulse 65 11/12/23 15:29 BP 112/66 11/12/23 15:29 Pulse Ox 98 11/12/23 15:29 Oxygen Delivery Method Room Air 11/12/23 15:29 BMI result Body Mass Index 31.0 Tobacco/Smoking Status: Tobacco use Status Tobacco use date assessed 11/12/23 11/12/23 15:37 Patient Tobacco Use Status Never used Tobacco 11/12/23 15:37 e-Cigarette/Vaping Use Never Used 11/12/23 15:29 Thrive Assessment: Date of Thrive Assessment Date Thrive assessed 03/11/23 11/12/23 15:29 Currently or been in a relationship where the following occur: I choose not to answer this question Const General: cooperative Nutritional Appearance: obese Orientation/consciousness: patient oriented x3 Resp Effort & Inspection: normal respiratory effort Auscultation: clear to auscultation bilaterally Cardio Rate: regular rate Rhythm: regular rhythm Heart sounds: S1 normal heart sound present and S2 normal heart sound present Neuro General: patient oriented x3 Extrem Other: bilat feet: + sensation with use of monofilament, onychomycosis noted bilat, right medial heel with small scabbed lesion, otherwise feet intact Psych Appearance: grossly normal Mental Status: mental status grossly normal Speech and movement: Normal speech and movement present Affect: normal affect Attitude: cooperative Thought process: Normal thought process present Thought content: Normal thought content present Insight: Good insight present (Psych) Judgement: Good judgement present (Psych) Results AMB Hemoglobin A1c AMB Hemoglobin A1c 7.3 % Last Edit by TASHA Delcid on 11/12/23 15:51 Assessment and Plan Assessment & Plan (1) Type II diabetes mellitus: Code(s): E11.9 - Type 2 diabetes mellitus without complications Plan: Labs ordered, starting ozempic (2) Elevated PSA: Code(s): R97.20 - Elevated prostate specific antigen [PSA] Plan: PSA ordered (3) Elevated TSH: Code(s): R79.89 - Other specified abnormal findings of blood chemistry Plan: Labs ordered Plan The patient agreed to the use of a medical affairs leader for this encounter. Scribed for TORIN Ellis by Cristina Deleon medical affairs leader, on 11/12/2023 at 15:40 EST. Orders: Orders Complete Blood Count Auto Diff Today E11.9 - Type 2 diabetes mellitus without complications Thyroid Peroxidase Antibodies Today R79.89 - Other specified abnormal findings of blood chemistry AMB Hemoglobin A1c Today Z13.9 - Encounter for screening, unspecified Comprehensive [place]. Panel Fast Today E11.9 - Type 2 diabetes mellitus without complications TSH reflex Free T4 Today E11.9 - Type 2 diabetes mellitus without complications UA CC w/rflx Micro + Cult Today E11.9 - Type 2 diabetes mellitus without complications Lipid Panel Today E11.9 - Type 2 diabetes mellitus without complications Prostate Specific Antigen Scr Today R97.20 - Elevated prostate specific antigen [PSA] Medications: New semaglutide (Ozempic) for 4 weeks 0.25 mg (0.368 mL) subcut QWEEK 3 mL 0RF Refilled insulin glargine (Lantus Solostar U-100 Insulin) 30 units (0.3 mL) subcut BEDTIME 15 mL 0RF Coding Level of Care Code Est Pt Level 3 (81047) Diagnoses Type II diabetes mellitus E11.9 Elevated PSA R97.20 Elevated TSH R79.89
== END 2023-11-12 16:08 | disposition home or self-care (01) ==
PROVIDERS: PCP Nurse Practitioner Family; Visit Provider Nurse Practitioner Family
DX: E11.9 Type 2 diabetes mellitus without complications (principal); R97.20 Elevated prostate specific antigen [PSA]; R79.89 Other specified abnormal findings of blood chemistry
CPT/HCPCS: 83036; 99213

== ENCOUNTER 2023-11-25 15:08 | Outpatient (AMB) | payer MEDICARE, SELFPAY ==
--- NOTE | 2023-11-25 15:28 | MHC.OFFVIS ---
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: No Allergies No Known Allergies Allergy (Verified 11/12/23 15:34) Medication List - Last Reconciled 11/25/23 by Gerry Lobo MD atorvastatin 20 mg PO BEDTIME flash glucose scanning reader ([employer]Style Janak 2 [place]) Use for continuous monitoring of blood sugars flash glucose sensor (FreeStyle Janak 2 Sensor kit) Use for continuous monitoring of blood sugars furosemide 20 mg PO DAILY insulin glargine (Lantus Solostar U-100 Insulin) 30 units (0.3 mL) subcut BEDTIME metoprolol succinate ER 150 mg (3 x 50 mg) PO DAILY 90 days pen needle, diabetic As directed sacubitril-valsartan 97-103 mg (Entresto) 1 tab PO BID 90 days semaglutide (Ozempic) 0.25 mg (0.368 mL) subcut QWEEK HPI Comments Details: Briana comes for follow-up. He said he has been doing very well and has no cardiac symptoms. Has been taking all his medications. Denies any symptoms of worsening shortness of breath, orthopnea, PND, leg edema. No abdominal distension. No exertional chest pain. No lightheadedness, syncope. Takes all his medications regularly. [facility] Medical History Lumbar disc herniation Ulnar neuropathy at elbow of left upper extremity Carpal tunnel syndrome, right Tubular adenoma of colon Hepatic steatosis On beta robinson at home Type II diabetes mellitus Chronic HFrEF (heart failure with reduced ejection fraction) Essential hypertension PVC (premature ventricular contraction) Non-ischemic cardiomyopathy Peripheral neuropathy Surgical History Hx of cardiac catheterization Hx of colonoscopy Family History Father Diabetes CHF (congestive heart failure) Mother High blood pressure Bladder cancer Social History Housing: House Are you a primary clinical care manager to a significant other at home: No Do you presently have visiting nurse or other home services: No Alcohol intake: current Alcohol intake frequency: holidays/special occasions only Patient Tobacco Use Status: Never used Tobacco e-Cigarette/Vaping Use: Never Used Second Hand Smoke Exposure: No service: No Current occupational status: employed 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[employer] Cognitive needs: No Hearing needs: No Vision needs: No Review of Systems Const Denies chills, Denies daytime sleepiness, Denies fatigue, Denies fever(s), Denies frequent falls, Denies poor appetite, Denies snoring, Denies stops breathing during sleep, Denies weakness, Denies weight gain and Denies weight loss Eyes Denies loss of vision ENT Denies dizziness and Denies hearing loss Card Denies chest pain, Denies claudication, Denies leg edema, Denies lightheadedness, Denies palpitations, Denies dyspnea, Denies dyspnea on exertion and Denies orthopnea Resp Denies cough, Denies excessive phlegm production, Denies dyspnea, Denies dyspnea on exertion, Denies snoring and Denies wheezing GI Denies abdominal pain, Denies hematochezia, Denies change in bowel habits, Denies nausea and Denies vomiting Denies dysuria and Denies urinary frequency Musc Denies arthralgias, Denies muscle weakness, Denies numbness and Denies other (frequent falls) Skin/Breast Denies nail changes and Denies rash Neuro Denies Abnormal speech present, Denies dizziness, Denies frequent falls, Denies loss of vision, Denies memory loss, Denies numbness and Denies weakness Psych Denies depression and Denies memory loss Endo Denies fatigue and Denies palpitations Best/Lymph Reports easy bruising and Reports other (anemia) Aller/Immun Denies wheezing Physical Exam Vital Signs: Last Vital Signs Pulse 73 11/25/23 15:29 BP 130/80 11/25/23 15:29 BMI result Body Mass Index 30.4 Const General: cooperative, no acute distress, alert, awake and poor hygiene Orientation/consciousness: patient oriented x3 HEENT Head: Yes normocephalic and Yes atraumatic Neck Neck: Yes normal visual inspection and Yes no JVD Resp Effort & Inspection: normal respiratory effort, able to speak in complete sentences and not labored Auscultation: clear to auscultation bilaterally, no crackles, no rales, no rhonchi and no wheezes Cardio Rate: regular rate Rhythm: regular rhythm Heart sounds: S1 normal heart sound present and S2 normal heart sound present Peripheral pulses: Peripheral pulses 2+ throughout GI Inspection: Yes normal to inspection Neuro General: patient oriented x3 Speech: No Abnormal speech present Extrem General: Yes normal to inspection and No edema Office Procedures EKG Details: EKG shows normal sinus rhythm with a right bundle-branch block with left axis deviation suggestive of left anterior fascicular block with criteria for LVH [id number], Complete Assessment & Plan Assessment & Plan (1) Heart failure with reduced ejection fraction: Code(s): I50.20 - Unspecified systolic (congestive) heart failure Category: Medical Plan: Heart failure with reduced ejection fraction this elderly gentleman doing very well from clinical perspective on current low-dose diuretic therapy. Clinically appears to be euvolemic and well compensated. Much improved symptoms and class 1 and maintaining his functional capacity. Continue neurohormonal modulation with Entresto and metoprolol therapy. Importance of good medical therapy was discussed. Continue aggressive risk factor modification. Blood pressure is well optimized advised to continue low-salt diet. Daily weight monitoring advised. Additional diuretics as need be. He understands management well. Follow up in the clinic in 6 months time after echocardiogram. Thank you for allowing me to partake in his care Orders: Orders CA echo transthoracic complete 5 Months I50.20 - Unspecified systolic (congestive) heart failure Coding Level of Care Code Est Pt Level 4 (06992) Diagnoses Heart failure with reduced ejection fraction I50.20 CPT Codes EKG - CPT: 43322-[id number], Complete ([id number])
[2023-11-25 15:29] VITALS: BP 130/80; PULSE 73; BMI 30.4
== END 2023-11-25 15:47 | disposition home or self-care (01) ==
PROVIDERS: Visit Provider Internal Medicine Cardiovascular Disease
DX: I50.20 Unspecified systolic (congestive) heart failure (principal)
CPT/HCPCS: 93010; 99214

== ENCOUNTER → 2023-11-25 15:08 | Outpatient (BNVA) | payer MEDICARE, SELFPAY | PROVIDERS: Visit Provider Internal Medicine Cardiovascular Disease | DX: I11.0 Hypertensive heart disease with heart failure (principal); I50.22 Chronic systolic (congestive) heart failure; Z98.890 Other specified postprocedural states | CPT/HCPCS: 93005; 99212 ==

== ENCOUNTER 2024-05-19 14:29 | Outpatient (REF) | payer SELFPAY ==
[2024-05-19 17:26] LABS: Prostate Specific Antigen Scr 6.63 ng/mL (<0.05-4.0)
[2024-05-19 17:52] LABS: Alanine Aminotransferase 25 U/L (0-40); Albumin Level 3.8 g/dL (3.5-5.0); Alkaline Phosphatase 55 U/L (39-117); Anion Gap 11 (12-20); Aspartate Amino Transferase 30 U/L (5-37); Bilirubin Total 0.9 mg/dL (0.0-1.0); Blood Urea Nitrogen 31 mg/dL (9-16); Calcium 9.8 mg/dL (8.4-10.2); Carbon Dioxide 25 mmol/L (22-29); Chloride 109 mmol/L (96-108); Cholesterol 169 mg/dL (<200); Estimated Glomerular Filt Rate > 60; Glucose Fasting 87 mg/dL (60-99); HDL Cholesterol 61 mg/dL (>40); LDL Cholesterol Calculated 92 mg/dL (<100); Potassium 3.9 mmol/L (3.3-5.1); Sodium 141 mmol/L (135-145); Total Protein 7.3 g/dL (6.5-8.0); Triglycerides 83 mg/dL (<150)
[2024-05-19 18:11] LABS: TSH reflex Free T4 2.49 uIU/mL (0.32-4.0)
[2024-05-20 13:49] LABS: Thyroid Peroxidase Antibodies 1 IU/mL (<9)
== END 2024-05-19 14:30 | disposition home or self-care (01) ==
LOC: HO.HMGCLDS 14:29
PROVIDERS: PCP Nurse Practitioner Family; Visit Provider Nurse Practitioner Family
DX: E11.9 Type 2 diabetes mellitus without complications (principal); R79.89 Other specified abnormal findings of blood chemistry; R97.20 Elevated prostate specific antigen [PSA]; Z12.5 Encounter for screening for malignant neoplasm of prostate
CPT/HCPCS: 36415; 80053; 80061; 83036; 84153; 84443; 86376

== ENCOUNTER → 2024-09-16 14:56 | Outpatient (REF) | payer MEDICARE, SELFPAY ==
--- NOTE | 2024-09-16 14:59 | CA_ITS ---
Transthoracic Echocardiogram Patient (Last, First, Middle): Briana Borrero A Gender: Male Date of : 1955 Age: 69 Procedure Date: 09/16/2024 Procedure Type: Transthoracic Echocardiogram Location: OP Height: 175.26 cm Weight: 97.52 kg BSA: 2.13 m2 Heart Rate: bpm BP: 160 / 84 mmHg Client Administrator: TO Referring MD: Gerry Lobo MD Apn: Gerry Lobo MD Symptoms: I50.20 - Unspecified systolic (congestive) heart failure Study Quality: Fair/No IV access ECG Rhythm: Sinus Conclusions: - 1. Low normal LV ejection fraction of 50-55% with mild LVH with elevated filling pressures 2. Cardiac valvular Dopplers within normal limits 3. Mildly dilated ascending aorta at 4 cm 4. No gross pericardial effusion Findings Left Ventricle Normal left ventricular cavity size. There is mildly increased left ventricular wall thickness. The left ventricular systolic function is low normal. The visually estimated ejection fraction is between 50-55%. Spectral Doppler is indicative of an impaired relaxation filling pattern. Elevated filling pressures. E/E prime ratio is >15, consistent with elevated filling pressures. Right Ventricle Normal right ventricular cavity size and systolic function. Atria The left atrium is likely dilated. There is no evidence of interatrial shunt. The right atrium is normal in size. Aortic Valve There is mild thickening of the aortic valve. There is no aortic valve stenosis. There is no aortic valve regurgitation. Mitral Valve There is mild anterior and posterior mitral leaflet thickening. There is trace mitral valve regurgitation. There is no mitral valve stenosis. Pulmonic Valve The pulmonic valve is likely normal. Tricuspid Valve Normal tricuspid valve structure. Tricuspid regurgitation envelope is inadequate for calculation of right ventricular systolic pressure. Normal right atrial pressure. Great Vessels The pulmonary artery was not well visualized. There is mild dilatation of the ascending aorta measuring 4.00 cm. Venous The inferior vena cava is normal in size and collapses greater than 50% with inspiration. Pericardium/Pleural There is no evidence of pericardial effusion. Prior Study Comparison Changes noted compared to prior study dated: 04/21/2023. LV systolic function has improved Measurements 2D Linear Measurements IVSd: 1.21 0.6-0.9/0.6-1.0 cm LVIDd: 5.23 3.9-5.3/4.2-5.9 cm LVIDd Index: 2.46 2.4-3.2/2.2-3.1 cm/m2 LVIDs: 3.75 2.0-3.6 cm LVPWd: 1.18 0.7-1.1 cm Ao Root: 3.90 2.1-3.5 cm LA Diam: 3.70 2.7-3.8/3.0-4.0 cm LAIDs Index: 1.74 1.5-2.3 cm/m2 LV Mass: 311.37 67-162/88-224 g LV Mass Index: 146.18 43-95/49-115 g/m2 LVOT Diam: 2.30 3.0+(-)1.3 cm 2D Systolic Function EF 4C: 57.90 >55% EF 2C: 52.60 >55% EF BiP: 53.50 >55% Mitral Valve MV Pk E: 0.82 MV PK A: 0.96 MV Decel Time: 180.00 E/A: 0.90 E'Lateral: 5.00 E'Medial: 3.81 E/E' Med: 21.50 E/E' Lat: 16.40 PHT: 53.00 MVA PHT: 4.15 Decel Carson: 4.55 Aortic Valve AoV Pk Emery: 1.41 AoV Mn Emery: 0.97 AoV VTI: 0.28 AoV Pk Grad: 8.00 Aov Mn Grad: 4.00 WENDY Cont.VTI: 2.96 LVOT LVOT Pk Emery: 0.86 LVOT Mn Emery: 0.53 LVOT VTI: 0.20 LVOT Pk Grad: 3.00 LVOT Mn Grad: 1.00 LVOT Diam: 2.30 LVOT Area: 4.15 Diastolic Function MV Pk E: 0.82 MV Pk A: 0.96 E/A: 0.90 E'Medial: 3.81 E/E' Med: 21.50 E' Laterial: 5.00 E/E' Lat: 16.40 Right Ventricle TAPSE (mm): 21.70 TVS' Emery: 14.00 Tricuspid Valve RA Press: 3.00 Great Vessels Aorta Ao Root-2D: 3.90 2.0-3.7 cm Sinus of Valsalva: 3.90 2.0-3.5 cm Ao Asc: 4.00 2.1-3.4 cm Updated in Other Vendor System with Status of Final Gerry Lobo MD electronically signed on 09/17/2024 1:19:53 PM with status of Final
== END ==
LOC: HO.CARD 14:56
PROVIDERS: PCP Nurse Practitioner Family; Visit Provider Internal Medicine Cardiovascular Disease
DX: I50.20 Unspecified systolic (congestive) heart failure (principal)
CPT/HCPCS: 93306

== ENCOUNTER → 2024-09-16 14:59 | Outpatient (BNV) | payer MEDICARE, SELFPAY | PROVIDERS: PCP Nurse Practitioner Family; Visit Provider Internal Medicine Cardiovascular Disease | DX: I50.20 Unspecified systolic (congestive) heart failure (principal) | CPT/HCPCS: 93306 ==

== ENCOUNTER 2024-10-01 15:02 | Outpatient (AMB) | payer MEDICARE, SELFPAY ==
[2024-10-01 15:06] VITALS: BP 122/62; PULSE 63; BMI 32.3
--- NOTE | 2024-10-01 15:06 | MHC.OFFVIS ---
Vital Signs 10/01/24 15:06 Height 5 ft 10 in Weight 224 lb 13.944 oz BMI 32.3 BP 122/62 Blood Pressure Location Lt brachial Position Sitting Pulse 63 Pulse Source Pulse Oximeter Intake Visit Reasons: follow up echo dr willis pt Allergies No Known Allergies Allergy (Verified 04/15/24 15:06) Medication List - Last Reconciled 10/01/24 by Dakotah Wei NP flash glucose scanning reader (SynapseStyle Janak 2 [place]) Use for continuous monitoring of blood sugars flash glucose sensor (FreeStyle Janak 2 Sensor kit) Use for continuous monitoring of blood sugars furosemide 20 mg PO DAILY insulin glargine (Lantus Solostar U-100 Insulin) 30 units (0.3 mL) subcut BEDTIME metoprolol succinate ER 150 mg (3 x 50 mg) PO DAILY 90 days pen needle, diabetic As directed sacubitril-valsartan 97-103 mg (Entresto) 1 tab PO BID 90 days HPI Comments Details: This is a 69-year-old male patient presenting for a routine follow-up visit. Patient has past medical history includes hypertension, diabetes, nonischemic cardiomyopathy, and heart failure with reduced ejection fraction. Patient reports that he has been doing well overall since his last visit. He has been taking Lasix 40 mg intermittently due to episodes of increased leg swelling, which tend to occur later in the day. He attributes this in part to his physically demanding job as he is on his feet all day. Patient denies any associated symptoms including exertional chest pain, shortness of breath, palpitations, dizziness, fatigue, orthopnea, PND, presyncope, or syncope. The patient affirms for compliance with all his prescribed medications. [facility] Medical History Lumbar disc herniation Ulnar neuropathy at elbow of left upper extremity Carpal tunnel syndrome, right Tubular adenoma of colon Hepatic steatosis On beta robinosn at home Type II diabetes mellitus Chronic HFrEF (heart failure with reduced ejection fraction) Essential hypertension PVC (premature ventricular contraction) Non-ischemic cardiomyopathy Peripheral neuropathy Surgical History Hx of cardiac catheterization Hx of colonoscopy Family History Father Diabetes CHF (congestive heart failure) Mother High blood pressure Bladder cancer Social History Housing: House Are you a primary acute care clinical nurse specialist to a significant other at home: No Do you presently have visiting nurse or other home services: No Alcohol intake: current Alcohol intake frequency: holidays/special occasions only Patient Tobacco Use Status: Never used Tobacco e-Cigarette/Vaping Use: Never Used Second Hand Smoke Exposure: No service: No Current occupational status: employed 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[employer] Cognitive needs: No Hearing needs: No Vision needs: No Review of Systems Const Denies weakness ENT Denies dizziness Card Denies chest pain, Denies chest pain with activity, Denies syncope, Denies rapid heart rate, Denies pedal edema, Denies edema, Denies leg edema, Denies lightheadedness, Denies palpitations, Denies dyspnea, Denies dyspnea on exertion and Denies orthopnea Resp Denies cough, Denies dyspnea and Denies dyspnea on exertion GI Denies hematochezia and Denies change in stool character Musc Denies abnormal gait, Denies muscle cramps, Denies muscle weakness, Denies numbness, Denies radiating pain into limb and Denies tingling Neuro Denies abnormal gait, Denies dizziness, Denies syncope, Denies numbness, Denies tingling and Denies weakness Endo Denies palpitations Physical Exam Vital Signs: Last Vital Signs Pulse 63 10/01/24 15:06 BP 122/62 10/01/24 15:06 BMI result Body Mass Index 32.3 Const General: cooperative, healthy appearing, comfortable and no acute distress Orientation/consciousness: patient oriented x3 HEENT Head: Yes normal to inspection Neck Neck: Yes normal visual inspection, Yes trachea midline and Yes supple Chest Chest palpation & inspection: normal inspection of the chest Resp Effort & Inspection: normal respiratory effort Auscultation: clear to auscultation bilaterally, no crackles, no rales, no rhonchi and no wheezes Cardio Jugular venous distension: no JVD Palpation: normal PMI Rate: regular rate Rhythm: regular rhythm Heart sounds: S1 normal heart sound present, S2 normal heart sound present, no click, no gallops, no murmurs and no rubs Peripheral pulses: Peripheral pulses 2+ throughout GI Inspection: Yes normal to inspection Palpation (GI): Soft to palpation Auscultation: normal bowel sounds Skin General skin exam: no rashes or lesions noted Neuro General: patient oriented x3 Extrem General: Yes normal to inspection, No no pedal edema and No calf tenderness Psych Appearance: grossly normal Mental Status: mental status grossly normal Speech and movement: Normal speech and movement present Assessment & Plan Assessment & Plan (1) Heart failure with reduced ejection fraction: Code(s): I50.20 - Unspecified systolic (congestive) heart failure Category: Medical Plan: 09/16/2024-patient's echo study showed a low-normal LV EF between 50-55% with mild LVH with elevated filling pressures and mildly dilated ascending aorta at 4 cm. Compared to his previous study, his LV systolic function has improved. Clinically euvolemic. Continue metoprolol, Entresto, and Lasix therapy. Patient can continue taking Lasix twice daily. We will monitor his kidney function periodically. Emphasized on med compliance and advised low-salt diet, 2 L fluid restriction daily, daily weight monitoring, and wearing compression socks. (2) Nonischemic cardiomyopathy: Code(s): I42.8 - Other cardiomyopathies Category: Medical Plan: As above. (3) Essential hypertension: Code(s): I10 - Essential (primary) hypertension Category: Medical Plan: Blood pressure today is well-controlled. Continue current regimen. Advised patient to monitor blood pressures at home. Ideally, blood pressure goal less than 130/80. (4) Type II diabetes mellitus: Code(s): E11.9 - Type 2 diabetes mellitus without complications Category: Medical Plan: Continue diabetes management with an A1c goal less than 7%. Advised heart healthy diet, regular exercise, med compliance, and aggressive management of vascular risk factors. Follow-up in a year's time, sooner if needed. In the interim, patient will call the office with any concerns or change in symptoms. This note was generated using voice recognition software. While every effort has been made to ensure accuracy and proper historical records administrator, there may be occasional errors that could affect the content or meaning of the described symptoms. Orders: Orders Basic Metabolic Panel 1 Month I50.20 - Unspecified systolic (congestive) heart failure CA echo transthoracic complete 1 Year I50.20 - Unspecified systolic (congestive) heart failure Medications: Changed From furosemide 20 mg PO DAILY 90 tabs 3RF To furosemide 20 mg PO BID 90 tabs 3RF Coding Level of Care Code Est Pt Level 4 (70750) Complex EM visit Add On G2211 Diagnoses Heart failure with reduced ejection fraction I50.20 Nonischemic cardiomyopathy I42.8 Essential hypertension I10 Type II diabetes mellitus E11.9 Time Spent (min) 31 Comment Time spent in reviewing the chart, test results, assessment, counseling and documentation.
== END 2024-10-01 15:20 | disposition home or self-care (01) ==
LOC: HO.HCS 15:03
PROVIDERS: PCP Nurse Practitioner Family
DX: I50.20 Unspecified systolic (congestive) heart failure (principal); I42.8 Other cardiomyopathies; I10 Essential (primary) hypertension; E11.9 Type 2 diabetes mellitus without complications
CPT/HCPCS: 99214; G2211

== ENCOUNTER → 2024-10-01 15:02 | Outpatient (BNVA) | payer MEDICARE, SELFPAY | PROVIDERS: PCP Nurse Practitioner Family | DX: I11.0 Hypertensive heart disease with heart failure (principal); I50.20 Unspecified systolic (congestive) heart failure; I42.8 Other cardiomyopathies; E11.9 Type 2 diabetes mellitus without complications | CPT/HCPCS: 99212 ==